=== PATIENT | female | born 1965 | race Two or more races ===

== ENCOUNTER 2018-03-06 11:50 | Emergency (ER) | payer BC ==
[~2018-03-06] VITALS: Ht 177.8 cm; Wt 61.2 kg
[2018-03-06 14:28] VITALS: BP 114/73
== END 2018-03-06 16:22 | disposition home or self-care (01) ==
LOC: ER 11:50
DX: S20.211A Contusion of right front wall of thorax, initial encounter (principal); X58.XXXA Exposure to other specified factors, initial encounter; Y93.9 Activity, unspecified; Y92.89 Other specified places as the place of occurrence of the external cause; Y99.8 Other external cause status
CPT/HCPCS: 71046; 82962; 93005